=== PATIENT | male | born 1960 | race Caucasian/White ===

== ENCOUNTER 2024-07-17 16:48 | Emergency (ER) | payer BC ==
[~2024-07-17] VITALS: Ht 188 cm; Wt 110.0 kg
[2024-07-17 16:57] VITALS: BP 164/109
[2024-07-17 17:01] VITALS: BP 182/105
[2024-07-17 17:30] LABS: BASO% 0.7 % (0-3); EOS% 0.2 % (0-8); HEMOGLOBIN 16.5 g/dl (14.0-18.0); IMMATURE GRANULOCYTES 0.2 % (0.0-5.0); LYMPH% 22.1 % (15-41); MEAN CELL VOLUME 91.1 fL CALC (80.0-100.0); MEAN CORPUSCULAR HGB 32.7 pG CALC (26.0-32.0); MEAN CORPUSCULAR HGB CONC 35.9 g/dL CAL (32.0-36.0); MONO% 7.6 % (2-13); NEUT# 6.37 thou/uL (1.82-7.42); NEUT% 69.2 % (42-76); RED BLOOD COUNT 5.05 mill/uL (4.70-6.10); RED CELL DISTRI WIDTH 12.7 % (11.5-15.5)
[2024-07-17 17:31] VITALS: BP 168/99
[2024-07-17 17:45] LABS: ALBUMIN 5.1 g/dL (3.2-5.0); BILIRUBIN, TOTAL 0.8 mg/dL (0.2-1.3); CREATININE 1.1 mg/dL (0.7-1.3); POTASSIUM 3.8 mmol/l (3.5-5.1); TOTAL PROTEIN 8.5 g/dL (6.3-8.2)
[2024-07-17 18:20] VITALS: BP 161/94
[2024-07-17 18:31] VITALS: BP 156/107
== END 2024-07-17 18:38 | disposition home or self-care (01) | DRG 948 ==
LOC: ED 16:48
PROVIDERS: Family Medicine
DX: R60.0 Localized edema (principal); I10 Essential (primary) hypertension